=== PATIENT | male | born 1990 | race Hispanic/Latino ===

== ENCOUNTER 2018-05-14 10:42 | Emergency (ER) | payer OTHER ==
[2018-05-14 10:59] VITALS: BP 98/59; PULSE 75; RESP 18; TEMP 97.7; O2SAT 99
--- NOTE | 2018-05-14 12:25 | ED PDOC ---
Syncope/Near Syncope/Dizziness Time Seen by Provider: 05/14/18 11:20 Chief Complaint (Nursing): Dizziness/Lightheaded Chief Complaint (Provider): Dizziness/Lightheaded History Per: Patient History/Exam Limitations: no limitations Onset/Duration Of Symptoms: Days Current Symptoms Are (Timing): Gone Now Associated Symptoms Preceding Syncopal Episode: Vertigo Seizure Or Post-ictal Symptoms: None Additional Complaint(s): 27 year old male with no past medical history who is presenting to the Ed for evaluation of episodes of vertigo onset 2 days ago. Patient states that he had an episode of what he thinks is vertigo 2 days ago accompanied by nausea and dizziness but it resolved spontaneously. He admits that he had a similar episode this morning without the nausea and dizziness which again resolved on its own. Patient denies any weakness, paresthesias, or headaches. Of note, patient states that he just recently moved here from [place] and thus doesnt have a PMD. Past Medical History Reviewed: Historical Data, Nursing Documentation, Vital Signs Vital Signs: Last Vital Signs Temp 97.7 F 05/14/18 10:57 Pulse 75 05/14/18 10:57 Resp 18 05/14/18 10:57 BP 98/59 L 05/14/18 10:57 Pulse Ox 99 05/14/18 10:57 - Medical History PMH: No Chronic Diseases - Surgical History Surgical History: No Surg Hx - Family History Family History: States: Unknown Family Hx - Social History Ex-Smoker (has not smoked in the last 12 months): No Alcohol: None Drugs: Denies Review of Systems ROS Statement: Except As Marked, All Systems Reviewed And Found Negative Gastrointestinal: Positive for: Nausea. Negative for: Vomiting Neurological: Positive for: Dizziness. Negative for: Weakness, Headache, Other (paresthesias ) Physical Exam - Reviewed Nursing Documentation Reviewed: Yes Vital Signs Reviewed: Yes - Physical Exam Appears: Positive for: Non-toxic, No Acute Distress Head Exam: Positive for: ATRAUMATIC, NORMAL INSPECTION, NORMOCEPHALIC Skin: Positive for: Normal Color, Warm, DRY Eye Exam: Positive for: EOMI, Normal appearance, PERRL ENT: Positive for: Normal ENT Inspection Neck: Positive for: Normal, Painless ROM Cardiovascular/Chest: Positive for: Regular Rate, Rhythm. Negative for: Murmur Respiratory: Positive for: Normal Breath Sounds. Negative for: Wheezing, Respiratory Distress Gastrointestinal/Abdominal: Positive for: Normal Exam, Soft. Negative for: Ten derness Extremity: Positive for: Normal ROM. Negative for: Deformity, Swelling Neurologic/Psych: Positive for: Alert, weather reporter II-XII, Oriented, Gait (stable). Negative for: Motor/Sensory Deficits, Aphasia, Facial Droop - ECG O2 Sat by Pulse Oximetry: 99 (RA) Pulse Ox Interpretation: Normal Medical Decision Making Medical Decision Making: Time: 12:25 pt with normal neuro exam and symptoms resolved exaplined to him that his symptosm could be due to vertigo but he should follow up with ent as outpt he is really here for name of specialist to follow up with Upon provider evaluation patient is medically stable, and requires no further treatment in the ED at this time. Patient will be discharged home. Counseling was provided and all questions were answered regarding diagnosis and need for follow up with outpatient ENT. There is agreement to discharge plan. Return if symptoms persist or worsen. Scribe Attestation: Documented by Jessica White, acting as a scribe for Lopez Cordon MD. Provider Scribe Attestation: All medical record entries made by the Scribe were at my direction and personally dictated by me. I have reviewed the chart and agree that the record accurately reflects my personal performance of the history, physical exam, medical decision making, and the department course for this patient. I have also personally directed, reviewed, and agree with the discharge instructions and disposition. Disposition - Clinical Impression Clinical Impression: Dizziness - Patient ED Disposition Is Patient to be Admitted: No Counseled Patient/Family Regarding: Diagnosis, Need For Followup - Disposition Referrals: Intake Counselor Service [Outside] Bernardo Gross MD [Staff Provider] - Disposition: Routine/Home Disposition Time: 12:00 Condition: IMPROVED Additional Instructions: follow up with ENT specialist in one week return to the ED with any worsening or concerning symptoms Instructions: Vertigo (a Type of Dizziness) Forms: [facility] ([place])
== END 2018-05-14 12:34 | disposition home or self-care (01) ==
LOC: H.ER 10:42
DX: R56.9 Unspecified convulsions (principal); R42 Dizziness and giddiness; Z87.891 Personal history of nicotine dependence